=== PATIENT | male | born 1980 | race Asian ===

== ENCOUNTER 2023-12-21 18:14 | Emergency (ER) | payer SELFPAY ==
[~2023-12-21] VITALS: Ht 170.2 cm; Wt 63.5 kg
[2023-12-21 18:46] VITALS: BP_SYST 125; PULSE 77; RESP 16; TEMP 97; O2SAT 100
[2023-12-21 19:05] LABS: BASOPHILS # (AUTO) 0.1 K/uL (0.0-0.2); BASOPHILS % (AUTO) 0.9 % (0.0-2.0); EOSINOPHILS % (AUTO) 0.8 % (0.0-4.0); HEMOGLOBIN 14.6 g/dL (14.0-18.0); LYMPHOCYTES # (AUTO) 1.4 K/uL (1.0-5.5); LYMPHOCYTES % (AUTO) 24.8 % (20.5-51.5); MEAN CORPUSCULAR HEMOGLOBIN 29 pg (27-31); MEAN CORPUSCULAR HGB CONC 34 % (32-36); MEAN CORPUSCULAR VOLUME 86 fL (79.0-98.0); MONOCYTES # (AUTO) 0.5 K/uL (0.0-1.0); MONOCYTES % (AUTO) 9.5 % (1.7-9.3); NEUTROPHILS # (AUTO) 3.7 K/uL (1.8-7.7); PLATELET COUNT (AUTO) 301 K/uL (130-430); RED BLOOD CELL COUNT(AUTO) 5.02 MIL/uL (4.2-6.2); RED CELL DISTRIBUTION WIDTH 13.8 % (9.0-15.0); WHITE BLOOD COUNT (AUTO) 5.8 K/uL (4.8-10.8)
[2023-12-21 19:25] LABS: CREATININE 1.08 mg/dL (0.55-1.30); POTASSIUM 3.8 mmol/L (3.5-5.1)
[2023-12-21 19:44] VITALS: BP_SYST 125; PULSE 77; RESP 16; TEMP 97; O2SAT 100
== END 2023-12-21 19:44 ==
LOC: SED 18:14
DX: Z02.89 Encounter for other administrative examinations (principal); R51.9 Headache, unspecified; R07.89 Other chest pain
CPT/HCPCS: 36415; 80048; 85025; 99283